=== PATIENT | male | born 1995 | race Hispanic/Latino ===

== ENCOUNTER 2021-03-03 17:58 | Emergency (ER) | payer SELFPAY ==
[2021-03-03 18:17] VITALS: BP 113/68; PULSE 99; RESP 16; TEMP 36.4; O2SAT 99
--- NOTE | 2021-03-03 19:31 | ED.GENADULT ---
HPI - General Adult General Chief complaint: Unspecified Stated complaint: hemorrhoids Time Seen by Provider: 03/03/21 19:32 Source: patient, RN notes reviewed, old records reviewed and customs consultant (phone customs consultant used and friend) Mode of arrival: ambulatory Limitations: language barrier History of Present Illness HPI narrative: 25-year-old male who presents to [facility] with complaints of buttock pain for the past 8 days with difficulty sitting due to discomfort.Patient reports that he has gotten ahold of [facility] doctor and ampicillin, Advil Tylenol and ZULIK was ordered and he has been taking this for 4 days. Patient states that he has noted some blood on toilet tissue. Patient reports no known fevers, chills or sweats complaint: red inflamed left buttock with acute pain Onset (ago): day(s) (8) Location: buttocks (left) Severity scale (1-10): 10 Quality: aching Pain Consistency: constant Treatments prior to arrival: NSAID and other (ampicillin, Tylenol) Related Data Home Medications Medication Instructions Recorded Confirmed No Home Medications 03/03/21 03/04/21 Allergies Allergy/AdvReac Type Severity Reaction Status Date / Time No Known Allergies Allergy Verified 03/03/21 18:48 Review of Systems Review of Systems: CONSTITUTIONAL: No reported fever, chills, or sweats. EYES: Denies visual changes, redness, or discharge. ENT: Denies rhinorrhea, congestion, sore throat, or otalgia. CARDIOVASCULAR: Denies chest pain, palpitations, or edema. RESPIRATORY: Denies cough or dyspnea. GASTROINTESTINAL: Denies abdominal pain, nausea, vomiting, or diarrhea. GENITOURINARY: Denies dysuria or hematuria. SKIN: Positive for right buttock swelling redness and pain for 8 days duration MUSCULOSKELETAL: Denies back pain, joint pain, or myalgia. NEUROLOGIC: Denies headache, numbness, or weakness. PSYCHIATRIC: Denies anxiety or depression. All systems reviewed & are unremarkable except as noted in HPI and below [facility] Family History Family History Father Diabetes mellitus Hypertension Social History Social History Smoking status: Never smoker Alcohol intake: never Substance use: never Substance use type: does not use Spiritual care concerns: No Comments At time of signature, agree with nursing past medical, surgical, social and family history. There is no relevant family history pertinent to the presenting complaint Exam Narrative: GENERAL: Well-appearing, well-nourished, and in no acute distress. HEAD: Normocephalic, atraumatic. EYES: PERRLA and EOMI. ENT: Nares clear, no rhinorrhea or epistaxis. Mucous membranes moist.TM normal with good light reflex, throat pink with no lesions or exudates or tonsil enlargement NECK: Supple. No lymphadenopathy CHEST: Clear to auscultation. No respiratory distress. SaO2 99% on room air HEART: Regular rate and rhythm. No murmur heard. Normal peripheral pulses. ABDOMEN: Soft, nontender, nondistended, normal active bowel sounds. EXTREMITIES: Normal range of motion. No edema. SKIN: Warm, dry, large left buttock abscess with acute pain, swelling, redness and firm tissue with no induration noted of tissue. NEURO: No focal deficits. Alert and oriented x3. Course Course Level of Care: Express Care Visit Vital Signs Vital signs: Vital Signs Temperature 36.4 C 03/03/21 18:17 Pulse Rate 99 03/03/21 18:17 Respiratory Rate 16 03/03/21 18:17 Blood Pressure 113/68 03/03/21 18:17 Pulse Oximetry 99 03/03/21 18:17 Temperature 36.4 C 03/03/21 18:17 Pulse Rate 99 03/03/21 18:17 Respiratory Rate 16 03/03/21 18:17 Blood Pressure 113/68 03/03/21 18:17 Pulse Oximetry 99 03/03/21 18:17 Transfer Transfered to: [place] [facility]: Other Transfer rationale: acute abscess of left buttock Accepting physician: Dr Emilie Maharaj MD Transfer comm
--- NOTE | 2021-03-03 20:03 | PC.NURSE ---
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 stated preferred to go to [facility] for further evaluation.
--- NOTE | 2021-03-03 20:06 | PC.NURSE ---
friend at bedside at this time and will provide transportation to [facility].
== END 2021-03-03 20:17 | disposition short-term general hospital (02) ==
PROVIDERS: Emergency Provider Registered Nurse
DX: L02.31 Cutaneous abscess of buttock (principal)
CPT/HCPCS: 99202; G0463

== ENCOUNTER 2021-03-03 20:40 | Observation (INO) | payer SELFPAY ==
--- NOTE | ~2021-03-03 | CT_ITS ---
EXAMINATION: CT abdomen pelvis w con DATE: 03/04/2021 01:53 INDICATION: Left buttock swelling. Abscess. TECHNIQUE: Computed tomography (CT) of the abdomen and pelvis was performed with 100 mL Omnipaque 350 intravenous contrast. Automated exposure control and iterative reconstruction technique were employe d. The dose-length product was 567.64 mGy-cm. COMPARISON: None. FINDINGS: The visualized portions of the lung bases demonstrate minimal atelectasis. No pleural effus ion. The heart size is normal. No pericardial effusion. The liver, spleen, gallbladder, pancreas, adr enal glands, and kidneys are normal. There are no dilated loops of bowel. The appendix is normal. The re are no pathologically enlarged lymph nodes. There is no free intraperitoneal fluid. There is a per ianal abscess measuring 5.2 x 2.7 x 4.8 cm. There is fat stranding in the left perianal buttock. Ther e is mild lumbar spondylosis. IMPRESSION: 1. Perianal abscess measuring 5.2 x 2.7 x 4.8 cm. Reviewed, dictated and finalized at location A. HAND
[2021-03-03 20:53] VITALS: BP 143/69; PULSE 120; RESP 18; TEMP 37.7; O2SAT 98
[2021-03-03 22:52] VITALS: BP 111/75; PULSE 115; TEMP 38.3; O2SAT 100
[2021-03-04] VITALS (18 sets, daily range): BP systolic 106–139; BP diastolic 56–78; PULSE 70–116; RESP 10–20; TEMP 36.2–37.7; O2SAT 95–100; BMI 37.0
--- NOTE | 2021-03-04 00:20 | ED.SKABFB ---
HPI - Skin/Abscess/Foreign Bdy General Chief complaint: Skin/Abscess/Foreign Body Stated complaint: abcess buttock from urgent care Time Seen by Provider: 03/04/21 00:00 Source: patient Mode of arrival: ambulatory Limitations: no limitations History of Present Illness HPI narrative: Patient is a 25-year-old male complaining of left buttocks pain, redness and swelling that started 8 days ago and fever x1 day. Patient denies any chest pain, shortness of breath, abdominal pain, nausea, or vomiting. Related Data Home Medications Medication Instructions Recorded Confirmed No Home Medications 03/03/21 03/03/21 Allergies Allergy/AdvReac Type Severity Reaction Status Date / Time No Known Allergies Allergy Verified 03/03/21 18:48 Review of Systems Review of Systems: All systems reviewed & are unremarkable except as noted in HPI and below Constitutional: Constitutional: Denies body ache(s), Denies chills, Denies excessive sweating, Denies fatigue, Denies fever(s), Denies headache(s), Denies lethargy, Denies malaise, Denies weakness and Denies weight loss Eyes: Eyes: Denies blurry vision, Denies change in vision and Denies loss of vision ENT: Denies dizziness, Denies ear discharge, Denies headache(s), Denies lip swelling, Denies epistaxis, Denies nasal congestion, Denies neck pain, Denies throat swelling and Denies tongue swelling Cardiovascular: Cardiovascular: Denies chest pain, Denies chest pain at rest, Denies chest pain with activity, Denies diaphoresis, Denies rapid heart rate, Denies edema, Denies irregular heart rhythm, Denies lightheadedness, Denies palpitations, Denies dyspnea and Denies dyspnea on exertion Respiratory: Respiratory: Denies chest congestion, Denies cough, Denies hemoptysis, Denies dyspnea and Denies dyspnea on exertion Gastrointestinal: Gastrointestinal: Denies abdominal pain, Denies melena, Denies hematochezia, Denies diarrhea, Denies nausea, Denies vomiting and Denies hematemesis Musculoskeletal: Musculoskeletal: Denies abnormal gait, Denies deformity, Denies joint swelling, Denies limited range of motion, Denies neck pain and Denies numbness Neurologic: Denies Abnormal speech present, Denies abnormal gait, Denies confusion, Denies dizziness, Denies headache(s), Denies focal weakness, Denies loss of vision, Denies numbness, Denies Other visual disturbances, Denies Sensory deficit (Neuro) and Denies weakness Psychiatric: Psychiatric: Denies confusion, Denies depression, Denies auditory hallucinations, Denies homicidal ideation and Denies suicidal ideation Endocrine: Endocrine: Denies cold intolerance, Denies excessive sweating, Denies fatigue, Denies heat intolerance and Denies palpitations Hematologic/Lymphatic: Hematologic/Lymphatic: Denies easy bleeding and Denies easy bruising Allergic/Immunologic: Allergic/Immunologic: Denies lip swelling, Denies throat swelling and Denies tongue swelling PMFSH Comments Past medical history: None Family history: Unknown Social history: Non-smoker no EtOH or drug use Exam Const: General: cooperative, healthy appearing, comfortable, no acute distress, well developed, alert and awake; No confusion Orientation/consciousness: oriented to person, oriented to place, oriented to time, patient oriented x3 and No confusion Limitations: no limitations HENMT: Head: normal to inspection, normocephalic and atraumatic Ears: hearing grossly normal bilaterally, TM normal on the right and TM normal on the left General nose exam: Normal external nose present, Normal nares present and No nasal discharge present Face and sinus: normal facial exam Mouth: Yes Normal oral and palatal mucosa present, Yes lip normal, Yes tongue normal and Yes oropharynx normal Throat: posterior oropharynx normal, tonsils normal and uvula midline Eyes: General: appearance normal, both eyes and all related structures Pupils: Equal, round and reactive pupils present EOM: EOMs intact bilaterally Neck:
[2021-03-04] MEDS: HYDROmorphone HCL INJ (*CRX) 1 MG/ML SYR IV PUSH (00:39)
[2021-03-04] MEDS: SODIUM CHLORIDE 0.9% IV 1,000 ML 999 ML IV CONT (00:39)
[2021-03-04] MEDS: CLINDAMYCIN 900 MG/D5W 50 ML 900 MG/50 ML PIGGYBACK 50 MG IVPB ×3 (00:40→21:10)
[2021-03-04] MEDS: ONDANSETRON INJ 4 MG/2 ML VIAL IV PUSH (00:40)
[2021-03-04 00:59] LABS: Basophils Absolute Auto 0.1 K/mm3 (0.0-0.1); Basophils Percent Auto 0.4 % (0.2-1.2); Eosinophils Percent Auto 0.2 % (0-4.4); Hematocrit 38.7 % (42.0-52.0); Immature Granulocyte Absolute 0.17 K/mm3 (0.00-0.031); Immature Granulocyte Percent A 0.9 % (0-0.5); Mean Corpuscular HGB Conc 33.6 g/dl (32-36); Mean Corpuscular Hemoglobin 26.9 pg (26-34); Mean Corpuscular Volume 80.1 fl (80-100); Mean Platelet Volume 10.3 fl (7.4-10.4); Monocytes Absolute Auto 1.2 K/mm3 (0.1-0.6); Monocytes Percent Auto 5.9 % (2.6-8.5); Neutrophils Absolute Auto 16.9 K/mm3 (1.3-6.7); Neutrophils Percent Auto 84.6 % (45.5-73.1); Platelet Count Result 354 k/mm3 (150-375); Red Blood Count 4.83 M/mm3 (4.6-6.20); Red Cell Distribution Width 12.1 % (11.5-14.5)
[2021-03-04 01:04] LABS: Alanine Aminotransferase 76 U/L (4-50); Albumin Level 4.2 g/dL (3.5-5.1); Alkaline Phosphatase 136 U/L (38-126); Anion Gap 13 mmol/L (8-16); Aspartate Amino Transferase 46 U/L (17-59); Bilirubin,Total 0.7 mg/dL (0.2-1.3); Blood Urea Nitrogen 9 mg/dL (9-20); Calcium 9.4 mg/dL (8.4-10.2); Carbon Dioxide 27 mmol/L (22-30); Chloride 98 mmol/L (98-107); Estimated CRCL calculation 131 ml/min; Estimated Glomerular Filt Rate > 60; Glucose 122 mg/dL (65-110); Lactic Acid Reflex 1.6 mmol/L (0.7-2.1); Potassium 3.4 mmol/L (3.4-5.0); Sodium 138 mmol/L (137-145)
--- NOTE | 2021-03-04 04:28 | ADMGEN ---
This patient, Omar Chicas, was admitted to 2 Medical Room 248-. Patient/family oriented to hospital policies and general routines including ID bracelet, bed and alarms, visiting hours, pain management, procedures, bathroom and other care routines, personal items, smoking policy, room service/diet, and visiting hours. Information on how to activate the Rapid Response Team has been discussed. Patient/Family are encouraged to report perceived risks to care and to ask questions if they do not understand what they are told or what they should do.
[2021-03-04] MEDS: LACTATED RINGERS 1,000 ML 125 ML IV CONT ×2 (04:50→20:36)
--- NOTE | 2021-03-04 05:20 | PM.IMHP ---
H&P: HPI History of Present Illness Date/Time: 03/04/21 05:20 Chief Complaint: Buttock abscess Narrative: This is a 25-year-old male with no significant past medical history. Patient presents to the emergency room for evaluation of a left buttock induration, redness and pain, according to the patient this has been present for the last 12 days or so initially noticed some discomfort and progressively got worse to the point patient has been having chills fevers not able to sit due to a string pain and discomfort he went for evaluation to urgent care and was sent over to the emergency room. In emergency room patient was found to have a large left buttock induration with redness and tenderness. Preliminary workup was significant for CT of abdomen and pelvis for abscess of the left buttock extending medially and inferiorly parallel to the rectum, CBC was significant for WBC of 20,000. Review of Systems Review of Systems: Left buttock induration, redness and tenderness ,fevers, rigors and chills. Constitutional: Constitutional: Reports chills, Reports fever(s) and Reports poor appetite Eyes: Eyes: Denies change in vision ENT: Denies dysphagia, Denies nasal congestion, Denies nasal discharge, Denies nasal obstruction and Denies odynophagia Cardiovascular: Cardiovascular: Denies pedal edema, Denies radiating jaw, neck or arm pain, Denies palpitations, Denies dyspnea on exertion and Denies orthopnea Respiratory: Respiratory: Denies cough, Denies dyspnea and Denies wheezing Gastrointestinal: Gastrointestinal: Denies abdominal pain, Denies dyspepsia, Denies heartburn, Denies nausea and Denies vomiting Genitourinary: Genitourinary: Denies dysuria Musculoskeletal: Musculoskeletal: Denies arthralgias, Denies joint swelling and Denies muscle weakness Integumentary/Breasts: Skin/Breast: Reports swelling and Reports erythema Comments: Right buttock induration redness tenderness swelling Neurologic: Denies focal weakness, Denies Sensory deficit (Neuro) and Denies weakness Psychiatric: Psychiatric: Reports no additional psychiatric complaints and Reports as per HPI Endocrine: Endocrine: Denies polyphagia, Denies polydipsia and Denies polyuria Hematologic/Lymphatic: Hematologic/Lymphatic: Reports no additional hematologic/lymphatic complaints and Reports as per HPI Allergic/Immunologic: Allergic/Immunologic: Reports no additional allergic/immunologic complaints and Reports as per HPI [facility] Family History Family History (Updated 03/04/21 @ 04:35 by Trinity Moreno RN) Father Diabetes mellitus Hypertension Social History Social History Smoking status: Never smoker Alcohol intake: never Substance use: never Substance use type: does not use Spiritual care concerns: No Meds Home Medications and Allergies Home Medications Medication Instructions Recorded Confirmed Type No Home Medications 03/03/21 03/03/21 History Allergies Allergy/AdvReac Type Severity Reaction Status Date / Time No Known Allergies Allergy Verified 03/03/21 18:48 Vital Signs Vital Signs - 24 hr 03/03/21 20:53 03/03/21 22:52 03/04/21 00:05 Temperature 100 F H 100.9 F H 98.2 F Pulse Rate 120 H 115 H 80 Respiratory Rate 18 16 Blood Pressure 143/69 H 111/75 Pulse Oximetry 98 100 100 03/04/21 04:10 03/04/21 04:11 Temperature 99.7 F H 99.7 F H Pulse Rate 116 H 116 H Respiratory Rate 18 18 Blood Pressure 139/65 139/65 Pulse Oximetry 100 100 Exam Narrative: Patient is laying in in semi recumbent position on his right side. Const: General: cooperative, comfortable, no acute distress, well developed, alert, awake and other (Well-appearing) Nutritional Appearance: average body habitus Orientation/consciousness: patient oriented x3 HENMT: Head: normal to inspection, normocephalic and atraumatic Ears: hearing grossly normal bilaterally General nose exam: Normal external
--- NOTE | 2021-03-04 07:23 | WPDPN ---
Progress Note: A&P Assessment and Plan (1) Cellulitis and abscess of buttock: Code(s): L02.31 - Cutaneous abscess of buttock; L03.317 - Cellulitis of buttock Status: Acute Assessment and Plan: Continue clindamycin day 1 Culture pending Supportive care NPO Surgery consult-complex incision and drainage left gluteal necrotizing soft tissue infection, debridement of necrotic dermis and underlying soft tissue, washout completed today CT of abdomen and pelvis Indicates Perianal abscess measuring 5.2 x 2.7 x 4.8 cm. continuePain management Wbc's20.0 Lactic acid 1.6 Started Zosyn Blood cultures pending Subjective Date/time seen: 03/04/21 07:23 patient complains of pain to his left buttocks. He has no complaints. He is prepared to go to surgery for a complex incision and drainage left gluteal necrotizing soft tissue infection, debridement of necrotic dermis and underlying soft tissue, washout Review of Systems Review of Systems: A 14 organ system Review of Systems was performed and pertinent positives included in the HPI, otherwise Exam Narrative: GENERAL: This is a well-nourished, well-developed patient, in no apparent distress. HEAD: normocephalic, atraumatic. EYES: PERRL. Sclera clear/white. Vision is grossly intact. EARS: External ears normal, auditory canals clear and without drainage, TMs normal without perforation. Hearing grossly intact. NOSE: External nose normal with no obvious nasal discharge, nares without redness, no rhinorrhea. THROAT: Mucous membranes moist, posterior pharynx clear. NECK: Neck supple, non-tender without lymphadenopathy, masses or thyromegaly. CARDIOVASCULAR: Regular rate and rhythm without murmurs, gallops, or rubs. RESPIRATORY: Clear to auscultation. Breath sounds equal bilaterally. No wheezes, rales, or rhonchi. GASTROINTESTINAL: Abdomen soft, non-tender, nondistended. Bowel sounds are active. No hepato-splenomegaly, or palpable masses. No guarding. SKIN: erythema, fluctuance and induration (Left buttock) NEURO: awake, alert, and oriented to person, place and time. There were no obvious focal neurologic abnormalities. Steady gait EXTREMITIES: Normal range of motion. No edema. No calf tenderness. Negative Homans sign bilaterally. BACK: Nontender without deformity or crepitance. No flank tenderness. Objective Data Vital Signs Vital Signs: Vital Signs - 24 hr 03/03/21 20:53 03/03/21 22:52 03/04/21 00:05 Temperature 100 F H 100.9 F H 98.2 F Pulse Rate 120 H 115 H 80 Respiratory Rate 18 16 Blood Pressure 143/69 H 111/75 Pulse Oximetry 98 100 100 03/04/21 04:10 03/04/21 04:11 Temperature 99.7 F H 99.7 F H Pulse Rate 116 H 116 H Respiratory Rate 18 18 Blood Pressure 139/65 139/65 Pulse Oximetry 100 100 Intake/Output Intake/Output: Intake & Output 03/01/21 03/02/21 03/03/21 03/04/21 23:59 23:59 23:59 23:59 Intake Total 1050 Balance 1050 Meds/Results Medications: Active Medications Generic Name Dose Route Start Last Admin Trade Name Freq PRN Reason Stop Dose Admin Docusate Sodium 100 mg 03/04/21 09:00 Docusate Sodium 100 Mg Capsule PO Q12HR PRINCESS Hydromorphone HCl 0.5 mg 03/04/21 01:24 Hydromorphone Hcl Inj (*Crx) 1 Mg/Ml Syr IV PUSH Q4H PRN Pain Rated 7-10 Lactated Ringer's 1,000 mls @ 125 mls/hr 03/04/21 01:25 03/04/21 04:50 Lr - Lactated Ringers Iv IV CONT 125 mls/hr .Q8H PRINCESS Administration Clindamycin Phosphate 900 mg in 50 mls @ 50 mls/hr 03/04/21 06:00 03/04/21 06:39 Cleocin 900 Mg/D5w 50 Ml IVPB 50 mls/hr Q8H PRINCESS Administration Acetaminophen 1,000 mg in 100 mls @ 400 mls/hr 03/04/21 05:34 Ofirmev 1,000 Mg Ivpb IVPB 03/05/21 05:33 Q6H PRN Pain Rated 4-6 or fever Ketorolac Tromethamine 30 mg 03/04/21 05:35 Ketorolac 30 Mg/Ml Vial (*Bkc) IV PUSH Q6H PRN Pain Rated 4-6 Labs Labs: Laboratory Results - last 24 hr 03/04/21 03/04/21
[2021-03-04] MEDS: DOCUSATE SODIUM 100 MG CAPSULE PO ×2 (08:04→20:36)
--- NOTE | 2021-03-04 10:35 | PM.CNGS ---
Assessment and Plan Assessment and plan (1) Cellulitis and abscess of buttock: Code(s): L02.31 - Cutaneous abscess of buttock; L03.317 - Cellulitis of buttock Status: Acute Assessment and Plan: CT reviewed, plan to take to OR urgently for complex incision and drainage, d/w pt and he agrees to proceed, cont abx for now, NPO History of Present Illness Consult details Consult date: 03/04/21 Reason for consult: wound care Requesting physician: Sal Moreno MD Narrative: The patient is a 25-year-old male presenting to the emergency department complaining of severe perirectal pain and swelling. The patient reports that the symptoms started approximately 8 days ago, with a little pimple in his left perirectal area. The patient reports over the last week the area has progressed significantly in both swelling and pain. The patient denies any previous episode. The patient does report subjective fevers and chills at home, as well as poor appetite. The patient reports the area has opened up and drained thick purulent fluid since last night. Review of Systems Constitutional: Constitutional: Reports chills, Reports fatigue, Reports lethargy, Reports malaise, Reports poor appetite, Reports weakness, Denies weight gain and Denies weight loss Eyes: Eyes: Reports no additional eye complaints ENT: Reports system reviewed and no additional complaints, except as documented Cardiovascular: Cardiovascular: Reports no additional cardiovascular complaints Respiratory: Respiratory: Reports no additional respiratory complaints Gastrointestinal: Gastrointestinal: Reports no additional gastrointestinal complaints Genitourinary: Genitourinary: Reports no additional male genitourinary complaints Musculoskeletal: Musculoskeletal: Reports no additional musculoskeletal complaints Integumentary/Breasts: Skin/Breast: Reports as per HPI Neurologic: Reports system reviewed and no additional complaints, except as documented Psychiatric: Psychiatric: Reports no additional psychiatric complaints Endocrine: Endocrine: Reports no additional endocrine complaints Hematologic/Lymphatic: Hematologic/Lymphatic: Reports no additional hematologic/lymphatic complaints Allergic/Immunologic: Allergic/Immunologic: Reports no additional allergic/immunologic complaints [facility] Family History Family History Father Diabetes mellitus Hypertension Social History Social History Smoking status: Never smoker Alcohol intake: never Substance use: never Substance use type: does not use Spiritual care concerns: No Comments PMH - none Surgical history - none Meds Home Medications and Allergies Home Medications Medication Instructions Recorded Confirmed Type No Home Medications 03/03/21 03/04/21 History Allergies Allergy/AdvReac Type Severity Reaction Status Date / Time No Known Allergies Allergy Verified 03/03/21 18:48 Vital Signs Vital Signs - 24 hr 03/03/21 20:53 03/03/21 22:52 03/04/21 00:05 Temperature 37.7 C H 38.3 C H 36.8 C Pulse Rate 120 H 115 H 80 Respiratory Rate 18 16 Blood Pressure 143/69 H 111/75 Pulse Oximetry 98 100 100 03/04/21 04:10 03/04/21 04:11 Temperature 37.6 C H 37.6 C H Pulse Rate 116 H 116 H Respiratory Rate 18 18 Blood Pressure 139/65 139/65 Pulse Oximetry 100 100 Exam Const: General: cooperative, healthy appearing, acute distress mild and tired appearing Nutritional Appearance: obese Orientation/consciousness: patient oriented x3 Limitations: no limitations HENMT: Head: normal to inspection, normocephalic and atraumatic Ears: hearing grossly normal bilaterally General nose exam: Normal external nose present Face and sinus: normal facial exam Mouth: Yes Normal oral and palatal mucosa present and Yes moist mucous membranes Eyes: General: appearance normal,
[2021-03-04] MEDS: LACTATED RINGERS 1,000 ML 30 ML IV CONT (12:32)
--- NOTE | 2021-03-04 12:33 | SUR.PREOP ---
ELISHA USED TO ASK PREOP QUESTIONS AND ANSWER PATIENTS QUESTIONS
--- NOTE | 2021-03-04 12:52 | WPDHPUPDATE1 ---
History and Physical Update Update Date/Time: 03/04/21 12:52 History and Physical has been reviewed, including an updated exam of the patient. There are NO changes in the patient's condition. Risks, benefits, and alternatives have been discussed and questions answered. Patient agrees to proceed with procedure.
--- NOTE | 2021-03-04 13:08 | WPDANESEPPF ---
Anes - Initial Pre Proc Eval Procedure: Operation Date: 03/04/21 13:00 Proposed Procedures p Incision and Drainage Left Buttock Abscess - Na Artis MD Date/Time: 03/04/21 13:08 Surgeon: Sal Moreno MD Pre Op Diagnosis: Left Buttocks Abscess, Cellulitis Patient Data Age: 25 Gender: M Height: 1.78 m Weight: 117 kg Last Vital Signs Temp 99.4 F 03/04/21 12:00 Pulse 96 03/04/21 12:00 Resp 18 03/04/21 12:00 BP 118/64 03/04/21 12:00 Pulse Ox 97 03/04/21 12:00 Allergies Allergy/AdvReac Type Severity Reaction Status Date / Time No Known Allergies Allergy Verified 03/03/21 18:48 Home Medications Medication Instructions Recorded Confirmed Type No Home Medications 03/03/21 03/04/21 History Laboratory Tests 03/04/21 03/04/21 03/04/21 00:40 00:40 00:40 WBC 20.0 K/mm3 H K/mm3 (4.5-10.0) RBC 4.83 M/mm3 M/mm3 (4.6-6.20) Hgb 13.0 g/dL L g/dL (14.0-18.0) Hct 38.7 % L % (42.0-52.0) MCV 80.1 fl fl (80-100) MCH 26.9 pg pg (26-34) MCHC 33.6 g/dl g/dl (32-36) RDW 12.1 % % (11.5-14.5) Plt Count 354 k/mm3 k/mm3 (150-375) MPV 10.3 fl fl (7.4-10.4) Immature Gran % (Auto) 0.9 % H % (0-0.5) Neut % (Auto) 84.6 % H % (45.5-73.1) Lymph % (Auto) 8.0 % L % (18.3-44.2) Millard % (Auto) 5.9 % % (2.6-8.5) Eos % (Auto) 0.2 % % (0-4.4) Baso % (Auto) 0.4 % % (0.2-1.2) Lymph # (Auto) 1.60 K/mm3 K/mm3 (0.9-3.2) Millard # (Auto) 1.2 K/mm3 H K/mm3 (0.1-0.6) Eos # (Auto) 0.0 K/mm3 K/mm3 (0-0.3) Baso # (Auto) 0.1 K/mm3 K/mm3 (0.0-0.1) Abs Immat Gran (auto) 0.17 K/mm3 H K/mm3 (0.00-0.031) Absolute Neuts (auto) 16.9 K/mm3 H K/mm3 (1.3-6.7) Absolute Nucleated RBC 0.0 K/mm3 K/mm3 (0.0-0.012) Nucleated RBC % 0.0 % % (0.0-0.2) Sodium 138 mmol/L mmol/L (137-145) Potassium 3.4 mmol/L mmol/L (3.4-5.0) Chloride 98 mmol/L mmol/L (98-107) Carbon Dioxide 27 mmol/L mmol/L (22-30) Anion Gap 13 mmol/L mmol/L (8-16) BUN 9 mg/dL mg/dL (9-20) Creatinine 0.80 mg/dL mg/dL (0.7-1.3) Estim Creat Clear Calc 131 ml/min ml/min Estimated GFR > 60 (59 - ) Glucose 122 mg/dL H mg/dL (65-110) Lactic Acid 1.6 mmol/L mmol/L (0.7-2.1) Calcium 9.4 mg/dL mg/dL (8.4-10.2) Total Bilirubin 0.7 mg/dL mg/dL (0.2-1.3) AST 46 U/L U/L (17-59) ALT 76 U/L H U/L (4-50) Alkaline Phosphatase 136 U/L H U/L (38-126) Total Protein 8.0 g/dL g/dL (6.3-8.2) Albumin 4.2 g/dL g/dL (3.5-5.1) Patient hx anesthesia problems: none Family hx anesthesia problems: none Results Review: All pre-operative results and documents have been reviewed as part of the pre-operative evaluation. [facility] Family History Family History Father Diabetes mellitus Hypertension Social History Social History Smoking status: Never smoker Alcohol intake: never Substance use: never Substance use type: does not use Spiritual care concerns: No Anes - Eval Final PreProcedure Day of Procedure 03/04/21 13:08 Patient weight: obese Heart: regular rate and rhythm Lungs: clear to auscultation Airway: Mallampati scale class II Neurological: alert and oriented Last oral intake: >/= 8 hours ASA classification: II Emergent: no Anesthetic plan: proceed Anesthesia type and monitoring: general LMA and standard monitoring Results Review: All pre-operative results and documents have been reviewed as part of the pre-operative evaluation. Informed Consent: The patient's anesthetic plan an
--- NOTE | 2021-03-04 14:06 | W.PM.PROC2 ---
Procedure Note - Detailed Date of Procedure 03/04/21 Pre-op Diagnosis Left Buttocks Abscess, Cellulitis Post-op Diagnosis other ( Necrotizing soft tissue infection left buttock) Procedure Performed complex incision and drainage left gluteal necrotizing soft tissue infection, debridement of necrotic dermis and underlying soft tissue, washout Surgeon Na Artis MD Anesthesia general Indications 25-year-old male presenting to hospital with large left gluteal abscess Findings necrotizing skin and soft tissue infection, large amount of purulence, cavity measuring approximately 15 x 12 cm, no involvement of underlying muscle or bone Description of Procedure The patient was taken to the operating room and placed in the lateral position. After adequate induction of general anesthesia, the patient was prepped and draped in the normal sterile fashion. A time-out was then done to the patient's identity, as as the procedure being performed. There was noted to be a necrotic area of dermis overlying this large indurated mass. This necrotic tissue measured approximately 4 x 4 cm and was debrided. Once debrided into the subcutaneous tissue, there was noted to be liquified necrosis as well as a large amount of purulence. The cavity was fully explored and subsequently drained. There was noted to be some necrotic fat and this was debrided as well. Once the area was completely opened and drained, measured approximately 15 x 12 cm. Of note, there was no involvement of the underlying muscle or bone. I then copiously washed out this cavity with sterile saline. The area was then packed with 1 in iodoform. Sterile dressing was placed. The patient tolerated the procedure well and was extubated in the operating room postop. Will be transferred to the recovery room in stable condition. Implants 1 in iodoform packing, 15 ft Estimated Blood Loss 5 Drains No Packing Yes Pathology none sent Complications No immediate complications Condition stable Disposition PACU
[2021-03-04] MEDS: fentaNYL CITRATE INJ (*CRX) 100 MCG/2 ML VIAL 25 MCG IV PUSH ×4 (14:14→15:35)
--- NOTE | 2021-03-04 16:07 | PC.NURSE ---
Pt return from OR per stretcher 03/04/21 [id number].
[2021-03-05] MEDS: CLINDAMYCIN 900 MG/D5W 50 ML 900 MG/50 ML PIGGYBACK 50 MG IVPB (05:14)
[2021-03-05] MEDS: LACTATED RINGERS 1,000 ML 125 ML IV CONT (05:17)
[2021-03-05 06:00] VITALS: BP 110/63; PULSE 72; RESP 21; TEMP 36.1; O2SAT 100
[2021-03-05 06:01] LABS: Hematocrit 36.4 % (42.0-52.0); Hemoglobin 12.3 g/dL (14.0-18.0); Mean Corpuscular HGB Conc 33.8 g/dl (32-36); Mean Corpuscular Hemoglobin 27.3 pg (26-34); Mean Corpuscular Volume 80.7 fl (80-100); Platelet Count Result 335 k/mm3 (150-375); Red Blood Count 4.51 M/mm3 (4.6-6.20); Red Cell Distribution Width 12.1 % (11.5-14.5); White Blood Count 15.4 K/mm3 (4.5-10.0)
[2021-03-05 06:18] LABS: Alanine Aminotransferase 58 U/L (4-50); Albumin Level 3.4 g/dL (3.5-5.1); Alkaline Phosphatase 125 U/L (38-126); Anion Gap 8 mmol/L (8-16); Aspartate Amino Transferase 42 U/L (17-59); Bilirubin,Total 0.5 mg/dL (0.2-1.3); Blood Urea Nitrogen 10 mg/dL (9-20); Calcium 8.8 mg/dL (8.4-10.2); Carbon Dioxide 30 mmol/L (22-30); Chloride 101 mmol/L (98-107); Estimated CRCL calculation 177 ml/min; Estimated Glomerular Filt Rate > 60; Glucose 128 mg/dL (65-110); Potassium 3.8 mmol/L (3.4-5.0); Sodium 139 mmol/L (137-145)
--- NOTE | 2021-03-05 07:50 | PM.DS ---
DS: Admitting Diagnosis Discharge Date 03/05/2021 Admitting Diagnosis Buttock abscess and cellulitis DS: Discharge Diagnosis Discharge Diagnosis (1) Cellulitis and abscess of buttock: Code(s): L02.31 - Cutaneous abscess of buttock; L03.317 - Cellulitis of buttock Status: Acute Assessment and Plan: Continue clindamycin day 1 Culture pending Supportive care NPO Surgery consult-complex incision and drainage left gluteal necrotizing soft tissue infection, debridement of necrotic dermis and underlying soft tissue, washout completed today CT of abdomen and pelvis Indicates Perianal abscess measuring 5.2 x 2.7 x 4.8 cm. continuePain management Wbc's20.0 Lactic acid 1.6 Started Zosyn Blood cultures pending DS: Summary Hospital Course Reason for hospitalization: Buttock abscess Hospital Course: This is a 25-year-old male with no significant past medical history. Patient presents to the emergency room for evaluation of a left buttock induration, redness and pain, according to the patient this has been present for the last 12 days or so initially noticed some discomfort and progressively got worse to the point patient has been having chills fevers not able to sit due to a string pain and discomfort he went for evaluation to urgent care and was sent over to the emergency room. In emergency room patient was found to have a large left buttock induration with redness and tenderness. Preliminary workup was significant for CT of abdomen and pelvis for abscess of the left buttock extending medially and inferiorly parallel to the rectum . A complex incision and drainage left gluteal necrotizing soft tissue infection, debridement of necrotic dermis and underlying soft tissue, washout was completed on 03/04/2021. Patient will discharge today with antibiotics pain medication. Time Spent with Patient Time attestation: Total time spent providing and/or coordinating discharge services: Exam Narrative: GENERAL: This is a well-nourished, well-developed patient, in no apparent distress. HEAD: normocephalic, atraumatic. EYES: PERRL. Sclera clear/white. Vision is grossly intact. EARS: External ears normal, auditory canals clear and without drainage, TMs normal without perforation. Hearing grossly intact. NOSE: External nose normal with no obvious nasal discharge, nares without redness, no rhinorrhea. THROAT: Mucous membranes moist, posterior pharynx clear. NECK: Neck supple, non-tender without lymphadenopathy, masses or thyromegaly. CARDIOVASCULAR: Regular rate and rhythm without murmurs, gallops, or rubs. RESPIRATORY: Clear to auscultation. Breath sounds equal bilaterally. No wheezes, rales, or rhonchi. GASTROINTESTINAL: Abdomen soft, non-tender, nondistended. Bowel sounds are active. No hepato-splenomegaly, or palpable masses. No guarding. SKIN: erythema, fluctuance and induration (Left buttock) NEURO: awake, alert, and oriented to person, place and time. There were no obvious focal neurologic abnormalities. Steady gait EXTREMITIES: Normal range of motion. No edema. No calf tenderness. Negative Homans sign bilaterally. BACK: Nontender without deformity or crepitance. No flank tenderness. DS: Data Data Completed and Pending Labs on day of discharge: Labs from last 24 hours 03/05/21 03/05/21 05:49 05:49 WBC 15.4 H RBC 4.51 L Hgb 12.3 L Hct 36.4 L MCV 80.7 MCH 27.3 MCHC 33.8 RDW 12.1 Plt Count 335 MPV 10.0 Sodium 139 Potassium 3.8 Chloride 101 Carbon Dioxide 30 Anion Gap 8 BUN 10 Creatinine 0.70 Estim Creat Clear Calc 177 Estimated GFR > 60 Glucose 128 H Calcium 8.8 Total Bilirubin 0.5 AST 42 ALT 58 H Alkaline Phosphatase 125 Total Protein 7.0 Albumin 3.4 L Preliminary micro results at discharge 03/04/21 00:40 Blood Culture - Preliminary Blood 03/04/21 00:40 Blood Culture - Preliminary Blood Discharge Plan Discharge Attending marian
[2021-03-05] MEDS: DOCUSATE SODIUM 100 MG CAPSULE PO (08:26)
[2021-03-05] MEDS: KETOROLAC 30 MG/ML VIAL (*BKC) IV PUSH (08:36)
--- NOTE | 2021-03-05 09:14 | PM.PNGS ---
Progress Note: A&P Assessment and Plan (1) Cellulitis and abscess of buttock: Code(s): L02.31 - Cutaneous abscess of buttock; L03.317 - Cellulitis of buttock Status: Acute Assessment and Plan: cont local wound care, no need for further packing, ok to dc home c po abx, f/u 2 wks for wound check Subjective Subjective Date/Time Seen: 03/05/21 09:14 feels better, only incisional tenderness c movt Review of Systems Review of Systems: All systems reviewed & are unremarkable except as noted in HPI and below Exam Const: General: cooperative, comfortable and no acute distress Resp: Auscultation: clear to auscultation bilaterally Cardio: Rate: regular rate Rhythm: regular rhythm GI: Inspection: normal to inspection Skin: Other: L gluteal wound - unpacked, good drainage, decreased induration, mod TTP Objective Data Vital Signs Vital Signs: Vital Signs - 24 hr 03/04/21 11:12 03/04/21 12:00 03/04/21 13:53 Temperature 37.7 C H 37.4 C 37.3 C Pulse Rate 80 96 79 Respiratory Rate 18 18 10 L Blood Pressure 125/68 118/64 114/75 Pulse Oximetry 99 97 100 03/04/21 14:05 03/04/21 14:20 03/04/21 14:35 Temperature Pulse Rate 74 82 86 Respiratory Rate 19 20 18 Blood Pressure 110/71 110/71 113/76 Pulse Oximetry 100 96 96 03/04/21 14:50 03/04/21 15:05 03/04/21 15:20 Temperature 37.5 C Pulse Rate 74 82 70 Respiratory Rate 16 17 17 Blood Pressure 110/74 124/78 116/73 Pulse Oximetry 96 96 96 03/04/21 15:35 03/04/21 15:53 03/04/21 16:15 Temperature 36.7 C Pulse Rate 70 75 79 Respiratory Rate 14 16 16 Blood Pressure 110/64 106/66 118/67 Pulse Oximetry 95 95 97 03/04/21 16:45 03/04/21 17:40 03/04/21 22:00 Temperature 36.3 C L 36.2 C L 36.2 C L Pulse Rate 80 96 71 Respiratory Rate 16 16 18 Blood Pressure 109/65 111/56 L 113/59 L Pulse Oximetry 98 99 97 03/05/21 06:00 Temperature 36.1 C L Pulse Rate 72 Respiratory Rate 21 H Blood Pressure 110/63 Pulse Oximetry 100 Intake/Output Intake/Output: Intake & Output 03/02/21 03/03/21 03/04/21 03/05/21 23:59 23:59 23:59 23:59 Intake Total 2600 1630 Balance 2600 1630 Meds/Results Medications: Active Medications Generic Name Dose Route Start Last Admin Trade Name Freq PRN Reason Stop Dose Admin Docusate Sodium 100 mg 03/04/21 09:00 03/05/21 08:26 Docusate Sodium 100 Mg Capsule PO 100 mg Q12HR PRINCESS Administration Hydromorphone HCl 0.5 mg 03/04/21 01:24 Hydromorphone Hcl Inj (*Crx) 1 Mg/Ml Syr IV PUSH Q4H PRN Pain Rated 7-10 Lactated Ringer's 1,000 mls @ 125 mls/hr 03/04/21 01:25 03/05/21 05:17 Lr - Lactated Ringers Iv IV CONT 125 mls/hr .Q8H PRINCESS Administration Clindamycin Phosphate 900 mg in 50 mls @ 50 mls/hr 03/04/21 06:00 03/05/21 06:14 Cleocin 900 Mg/D5w 50 Ml IVPB Infused Q8H PRINCESS Infusion Piperacillin/Tazobactam/Dextrose 3.375 gm in 50 mls @ 100 mls/hr 03/04/21 18:00 03/05/21 06:56 Zosyn 3.375 Gm/D5w 50ml Pm IVPB Infused Q6HR PRINCESS Infusion Ketorolac Tromethamine 30 mg 03/04/21 05:35 03/05/21 08:36 Ketorolac 30 Mg/Ml Vial (*Bkc) IV PUSH 30 mg Q6H PRN Administration Pain Rated 4-6 Trazodone HCl 50 mg 03/04/21 14:37 Trazodone Hcl 50 Mg Tablet PO HS PRN Insomnia Radiology Results: ITS Impressions Abdomen/Pelvis CT 03/04/21 08:34 IMPRESSION: 1. Perianal abscess measuring 5.2 x 2.7 x 4.8 cm. Labs Labs: Laboratory Results - last 24 hr 03/05/21 03/05/21 05:49 05:49 WBC 15.4 H RBC 4.51 L Hgb 12.3 L Hct 36.4 L MCV 80.7 MCH 27.3 MCHC 33.8 RDW 12.1 Plt Count 335 MPV 10.0 Sodium 139 Potassium 3.8 Chloride 101 Carbon Dioxide 30 Anion Gap 8 BUN 10 Creatinine 0.70 Estim Creat Clear Calc 177 Estimated GFR > 60 Glucose 128 H Calcium 8.8 Total Bilirubin 0.5 AST 42 ALT 58 H Alkaline Phosphatase 125 Total Protein 7.0 Albumin 3.4 L
[2021-03-05 14:00] VITALS: BP 112/60; PULSE 73; RESP 20; TEMP 36.2; O2SAT 100
== END 2021-03-05 15:00 | disposition home health service (06) ==
LOC: ANHED 03-04 01:34 → ANH2MED 03-04 07:55
PROVIDERS: Nurse Practitioner; Surgery; Admitting Provider Internal Medicine; Emergency Provider Emergency Medicine; Visit Provider Internal Medicine
PROC: (CPT 46040; principal; 2021-03-04 13:00)
DX: L02.31 Cutaneous abscess of buttock (principal); L03.317 Cellulitis of buttock
CPT/HCPCS: 10061; 11042; 36415; 74177; 80053; 83605; 85025; 85027; 87040; 96361; 96365; 96366; 96375; 99285; A9270; G0378; G0379; J1100; J1170; J1885; J2250; J2405; J2543; J2704; J3010; J7030; J7120; Q9967